=== PATIENT | male | born 1940 | race Caucasian/White ===

== ENCOUNTER 2017-04-12 16:57 | Inpatient (IN) | payer OTHER ==
[~2017-04-12] VITALS: Ht 182.9 cm; Wt 88.5 kg
[~2017-04-12 16:57] MED LIST: ATEN-60; BENA40TA7; DOXA1TAB42; FORMCAP; FUR40T PO; HYDR-3546 PO; IPRAAER5 IN; LOR05T PO; RANI-226; SIMV-13
[2017-04-12 17:23] LABS: CONDITION Y; Hematocrit 45.3 % (41.0-53.0); Hemoglobin 15.5 g/dL (13.5-17.5); Mean Corpuscular Hemoglobin 31.9 pg (28.0-32.0); Mean Corpuscular Hgb Conc. 34.3 g/dL (32.0-36.0); Mean Corpuscular Volume 93.1 fL (80.0-100.0); Mean Platelet Volume 8.4 fL (7.4-10.4); Platelet Count (auto) 258 10^3/uL (140-450); Red Cell Distribution Width 14.3 % (11.6-16.0); SUSPECT SEE PRINTOUT; White Blood Cell 27.4 10^3/uL (4.4-10.8)
[2017-04-12] MEDS ORDERED: SODIUM CHLORIDE 0.9% 1,000 ML IV ONE ×2 (17:27)
[2017-04-12 17:28] LABS: Metamyelocytes % 0; Myelocytes % 0; Promyelocytes % 0; Reactive Lymphocytes 0
[2017-04-12] MEDS ORDERED: IPRATROPIUM BROM 0.5 MG/2.5ML INH SOL NEB ONE (17:30)
[2017-04-12] MEDS ORDERED: cefTRIAXone 1GM/50ML D5W 50 ML IV ONE (17:30)
[2017-04-12] MEDS ORDERED: ALBUTEROL SULF 2.5 MG/0.5ML(0.5%) NEB SOLN NEB ONE (17:30)
[2017-04-12 17:43] LABS: INR 1.06 (0.9-1.15); Partial Thromboplastin Time 27.3 sec (22.64-33.71); Prothrombin Time 11.6 sec (9.37-12.3)
[2017-04-12] MEDS ORDERED: methylPREDNISolone SOD SUCC 125 MG/2 ML VL IV ONE (17:45)
[2017-04-12 17:46] LABS: Albumin 2.3 g/dL (3.4-5.0); BUN/Creatinine Ratio 18.2; Bilirubin, Total 1.2 mg/dL (0.2-1.0); Potassium 4.6 mmol/L (3.5-5.1); Total Protein 6.3 g/dL (6.4-8.2)
[2017-04-12 17:47] LABS: B-Type Natriuretic Peptide 99.83 pg/mL (0-100)
[2017-04-12 17:57] LABS: Platelet Estimate Adequate
[2017-04-12 18:00] LABS: Temperature: 22.7 C (20.0-25.0)
[2017-04-12] MEDS ORDERED: AZITHROMYCIN 500MG/D5W 250ML 250 ML IV ONE (18:15)
[2017-04-12] MEDS ORDERED: PIPERACILLIN-TAZOB 3.375GM 100 ML IV ONE ×2 (18:30→20:00)
[2017-04-12] MEDS ORDERED: VANCOMYCIN 1GM/250ML D5W 250 ML IV ONE (18:30)
[2017-04-12] MEDS ORDERED: TEMAZEPAM 15 MG CAP PO PRN (19:15)
[2017-04-12] MEDS ORDERED: MORPHINE SULF INJ 2 MG/ML SYRINGE 1ML IV PRN ×2 (19:15)
[2017-04-12] MEDS ORDERED: HYDROcodone-ACET 10/325MG TAB PO PRN (19:15)
[2017-04-12] MEDS ORDERED: NITROGLYCERIN 0.4 MG SL TAB SL PRN (19:15)
[2017-04-12] MEDS ORDERED: DOCUSATE SOD 100 MG CAP PO PRN (19:15)
[2017-04-12] MEDS ORDERED: ONDANSETRON HCL 4 MG/2 ML VIAL IV PRN (19:15)
[2017-04-12] MEDS ORDERED: ACETAMINOPHEN 325 MG TAB PO PRN (19:15)
[2017-04-12] MEDS ORDERED: VANCOMYCIN PER PHARMACY 0 MG IV SCH (19:15)
[2017-04-12] MEDS ORDERED: LORazepam 0.5 MG TAB PO PRN (19:15)
[2017-04-12] MEDS ORDERED: FUROSEMIDE 40 MG/4 ML VIAL IV ONE (19:30)
[2017-04-12] MEDS ORDERED: MULTIPLE VITAMIN TAB PO ONE (19:30)
[2017-04-12 21:33] VITALS: BP 97/59
[2017-04-12] MEDS: ATORVASTATIN 20 MG TAB PO SCH (22:04)
[2017-04-12] MEDS: FAMOTIDINE 20 MG TAB PO SCH (22:04)
[2017-04-12] MEDS: POTASSIUM CHL 20 Meq TABLET PO SCH (22:04)
[2017-04-12] MEDS: IPRATROPIUM BROM 0.5 MG/2.5ML INH SOL NEB SCH (22:28)
[2017-04-12] MEDS: BUDESONIDE (INHALATION) 0.5 MG/2 ML NEB NEB SCH (22:28)
[2017-04-12] MEDS: ALBUTEROL SULF 2.5 MG/0.5ML(0.5%) NEB SOLN NEB SCH (22:28)
[2017-04-12] MEDS: BOOST PLUS 8 ounce PO SCH (22:50)
[2017-04-12] MEDS: SODIUM CHLOR 0.9% PF (SALINE LOCK) 10ML VIAL IV SCH (23:45)
[2017-04-12 23:49] LABS: Urine Bilirubin Negative (Negative); Urine Blood Negative /uL (Negative); Urine Color Yellow (Yellow); Urine Glucose Normal (Normal); Urine Ketone Negative (Negative); Urine Nitrite Negative (Negative); Urine RBC <1 /hpf (0 - 3); Urine Urobilinogen Normal (Negative)
[2017-04-13] VITALS (7 sets, daily range): BP systolic 92–108; BP diastolic 57–70
[2017-04-13] MEDS: ALBUTEROL SULF 2.5 MG/0.5ML(0.5%) NEB SOLN NEB SCH ×5 (02:17→18:00)
[2017-04-13] MEDS: IPRATROPIUM BROM 0.5 MG/2.5ML INH SOL NEB SCH ×5 (02:17→18:00)
[2017-04-13] MEDS ORDERED: PRE5T PO (05:29)
[2017-04-13] MEDS ORDERED: IPRASOL39 NEB (05:29)
[2017-04-13] MEDS ORDERED: ALBU0.084 NEB (05:29)
[2017-04-13] MEDS ORDERED: FURO40TA4 PO (05:29)
[2017-04-13] MEDS ORDERED: ASPI-498 PO (05:29)
[2017-04-13] MEDS ORDERED: POTA1TAB4 PO (05:29)
[2017-04-13] MEDS ORDERED: HYDR-3546 PO (05:29)
[2017-04-13] MEDS: BOOST PLUS 8 ounce PO SCH ×4 (06:00→21:43)
[2017-04-13] MEDS: methylPREDNISolone SOD SUCC 40 MG/ML VL IV SCH ×3 (06:07→12:25)
[2017-04-13] MEDS: FUROSEMIDE 40 MG/4 ML VIAL IV SCH ×2 (06:08→17:42)
[2017-04-13] MEDS: SODIUM CHLOR 0.9% PF (SALINE LOCK) 10ML VIAL IV SCH ×3 (06:11→21:43)
[2017-04-13] MEDS: cefTRIAXone 1GM/50ML D5W 50 ML IV SCH (09:14)
[2017-04-13 09:28] LABS: CONDITION Y; Hematocrit 42.3 % (41.0-53.0); Hemoglobin 14.3 g/dL (13.5-17.5); Mean Corpuscular Hemoglobin 31.9 pg (28.0-32.0); Mean Corpuscular Hgb Conc. 33.9 g/dL (32.0-36.0); Mean Platelet Volume 8.6 fL (7.4-10.4); Platelet Count (auto) 205 10^3/uL (140-450); Red Cell Distribution Width 14.3 % (11.6-16.0); SUSPECT SEE PRINTOUT; White Blood Cell 21.4 10^3/uL (4.4-10.8)
[2017-04-13 09:41] LABS: Metamyelocytes % 0; Myelocytes % 0; Promyelocytes % 0; Reactive Lymphocytes 0
[2017-04-13] MEDS: POTASSIUM CHL 20 Meq TABLET PO SCH ×2 (09:44→21:43)
[2017-04-13] MEDS: ASPirin-EC 81 mg tab PO SCH (09:45)
[2017-04-13] MEDS: FAMOTIDINE 20 MG TAB PO SCH ×2 (09:45→21:43)
[2017-04-13] MEDS: MULTIPLE VITAMIN TAB PO SCH (09:45)
[2017-04-13 09:54] LABS: Albumin 2.1 g/dL (3.4-5.0); Calcium 8.4 mg/dL (8.5-10.1); Potassium 3.8 mmol/L (3.5-5.1)
[2017-04-13 09:57] LABS: BUN/Creatinine Ratio 22.2; Bilirubin, Total 0.7 mg/dL (0.2-1.0)
[2017-04-13] MEDS: BUDESONIDE (INHALATION) 0.5 MG/2 ML NEB NEB SCH (10:43)
[2017-04-13 11:26] LABS: Platelet Estimate Adequate
[2017-04-13 11:27] LABS: Burr Cells FEW; Ovalocytes FEW
[2017-04-13] MEDS: VANCOMYCIN 1,250 MG in D5W 5% 250 ML IV SCH (12:25)
[2017-04-13] MEDS ORDERED: TUBERCULIN PPD 5 UNIT/0.1 ML ID ONE (13:45)
[2017-04-13] MEDS ORDERED: MORPHINE SULFATE 4 MG/ML SYRG IV PRN ×2 (14:52→14:53)
[2017-04-13] MEDS: ATORVASTATIN 20 MG TAB PO SCH (21:43)
[2017-04-14 05:28] VITALS: BP 109/66
[2017-04-14] MEDS: SODIUM CHLOR 0.9% PF (SALINE LOCK) 10ML VIAL IV SCH ×3 (06:00→23:55)
[2017-04-14] MEDS: BOOST PLUS 8 ounce PO SCH ×4 (06:00→21:58)
[2017-04-14 06:26] LABS: CONDITION Y; Hematocrit 40.1 % (41.0-53.0); Hemoglobin 13.6 g/dL (13.5-17.5); Mean Corpuscular Volume 93.9 fL (80.0-100.0); Mean Platelet Volume 8.9 fL (7.4-10.4); Platelet Count (auto) 216 10^3/uL (140-450); Red Cell Distribution Width 13.8 % (11.6-16.0); SUSPECT SEE PRINTOUT; White Blood Cell 23.9 10^3/uL (4.4-10.8)
[2017-04-14] MEDS: VANCOMYCIN 1,250 MG in D5W 5% 250 ML IV SCH ×2 (06:36→23:55)
[2017-04-14] MEDS: FUROSEMIDE 40 MG/4 ML VIAL IV SCH ×2 (06:37→18:12)
[2017-04-14 06:45] LABS: Metamyelocytes % 0; Myelocytes % 0; Promyelocytes % 0; Reactive Lymphocytes 0
[2017-04-14 07:02] LABS: BUN/Creatinine Ratio 35.2; Calcium 8.8 mg/dL (8.5-10.1); Magnesium 2.4 mg/dL (1.6-2.6); Potassium 3.9 mmol/L (3.5-5.1)
[2017-04-14] MEDS: ALBUTEROL SULF 2.5 MG/0.5ML(0.5%) NEB SOLN NEB SCH ×5 (07:33→22:27)
[2017-04-14] MEDS: IPRATROPIUM BROM 0.5 MG/2.5ML INH SOL NEB SCH ×5 (07:33→22:27)
[2017-04-14] MEDS: BUDESONIDE (INHALATION) 0.5 MG/2 ML NEB NEB SCH ×2 (07:34→19:24)
[2017-04-14 08:38] LABS: Platelet Estimate Adequate
[2017-04-14 09:00] VITALS: BP 118/71
[2017-04-14] MEDS: FAMOTIDINE 20 MG TAB PO SCH ×2 (10:23→21:58)
[2017-04-14] MEDS: POTASSIUM CHL 20 Meq TABLET PO SCH ×2 (10:23→21:58)
[2017-04-14] MEDS: MULTIPLE VITAMIN TAB PO SCH (10:24)
[2017-04-14] MEDS: cefTRIAXone 1GM/50ML D5W 50 ML IV SCH (10:24)
[2017-04-14] MEDS: ASPirin-EC 81 mg tab PO SCH (10:24)
[2017-04-14 12:57] VITALS: BP 116/77
[2017-04-14 17:09] VITALS: BP 118/64
[2017-04-14 20:00] VITALS: BP 113/74
[2017-04-14] MEDS: ATORVASTATIN 20 MG TAB PO SCH (21:58)
[2017-04-14 22:00] VITALS: BP 113/74
[2017-04-15] VITALS (7 sets, daily range): BP systolic 99–110; BP diastolic 59–71
[2017-04-15] MEDS: ALBUTEROL SULF 2.5 MG/0.5ML(0.5%) NEB SOLN NEB SCH ×6 (02:29→22:18)
[2017-04-15] MEDS: IPRATROPIUM BROM 0.5 MG/2.5ML INH SOL NEB SCH ×6 (02:29→22:18)
[2017-04-15] MEDS: FUROSEMIDE 40 MG/4 ML VIAL IV SCH ×2 (05:38→18:00)
[2017-04-15] MEDS: SODIUM CHLOR 0.9% PF (SALINE LOCK) 10ML VIAL IV SCH ×3 (05:39→21:50)
[2017-04-15] MEDS: BOOST PLUS 8 ounce PO SCH ×4 (06:00→21:50)
[2017-04-15 07:20] LABS: Basophils # (auto) 0 uL; Basophils % (auto) 0.1 % (0.0-2.0); CONDITION Y; Eosinophils # (auto) 0 uL; Eosinophils % (auto) 0.1 % (0.0-7.0); Hematocrit 43.2 % (41.0-53.0); Hemoglobin 15.2 g/dL (13.5-17.5); Lymphocytes # (auto) 0.8 uL; Lymphocytes % (auto) 4.6 % (10.0-50.0); Mean Corpuscular Hemoglobin 32.7 pg (28.0-32.0); Mean Corpuscular Hgb Conc. 35.1 g/dL (32.0-36.0); Mean Corpuscular Volume 93.3 fL (80.0-100.0); Mean Platelet Volume 8.4 fL (7.4-10.4); Monocytes # (auto) 0.7 uL; Neutrophils # (auto) 15.1 uL; Neutrophils % (auto) 91.2 % (37.0-80.0); Platelet Count (auto) 200 10^3/uL (140-450); White Blood Cell 16.6 10^3/uL (4.4-10.8)
[2017-04-15] MEDS: BUDESONIDE (INHALATION) 0.5 MG/2 ML NEB NEB SCH ×2 (07:34→19:04)
[2017-04-15 07:40] LABS: Calcium 8.7 mg/dL (8.5-10.1); Magnesium 2.3 mg/dL (1.6-2.6); Potassium 3.8 mmol/L (3.5-5.1)
[2017-04-15] MEDS: PIPERACILLIN-TAZO 4.5GM 100 ML IV SCH ×3 (08:25→23:41)
[2017-04-15] MEDS: FAMOTIDINE 20 MG TAB PO SCH ×2 (09:54→21:51)
[2017-04-15] MEDS: POTASSIUM CHL 20 Meq TABLET PO SCH ×2 (09:54→21:50)
[2017-04-15] MEDS: ASPirin-EC 81 mg tab PO SCH (09:54)
[2017-04-15] MEDS: MULTIPLE VITAMIN TAB PO SCH (09:54)
[2017-04-15] MEDS: VANCOMYCIN 1,250 MG in D5W 5% 250 ML IV SCH (18:14)
[2017-04-15] MEDS: ATORVASTATIN 20 MG TAB PO SCH (21:50)
[2017-04-16 05:00] VITALS: BP 114/76
[2017-04-16 05:45] LABS: Basophils # (auto) 0 uL; Basophils % (auto) 0.2 % (0.0-2.0); CONDITION Y; Eosinophils # (auto) 0.1 uL; Eosinophils % (auto) 0.3 % (0.0-7.0); Hematocrit 42.2 % (41.0-53.0); Hemoglobin 14.5 g/dL (13.5-17.5); Lymphocytes # (auto) 0.6 uL; Lymphocytes % (auto) 3.8 % (10.0-50.0); Mean Corpuscular Hemoglobin 31.9 pg (28.0-32.0); Mean Corpuscular Hgb Conc. 34.3 g/dL (32.0-36.0); Mean Corpuscular Volume 92.9 fL (80.0-100.0); Mean Platelet Volume 8.2 fL (7.4-10.4); Monocytes # (auto) 0.6 uL; Monocytes % (auto) 3.8 % (0.0-12.0); Neutrophils # (auto) 14.7 uL; Neutrophils % (auto) 91.9 % (37.0-80.0); Platelet Count (auto) 254 10^3/uL (140-450); Red Cell Distribution Width 14.3 % (11.6-16.0); SUSPECT SEE PRINTOUT; White Blood Cell 15.9 10^3/uL (4.4-10.8)
[2017-04-16] MEDS: BOOST PLUS 8 ounce PO SCH ×2 (06:00→12:14)
[2017-04-16] MEDS: SODIUM CHLOR 0.9% PF (SALINE LOCK) 10ML VIAL IV SCH ×2 (06:01→16:12)
[2017-04-16 06:11] LABS: BUN/Creatinine Ratio 20.6; Calcium 8.7 mg/dL (8.5-10.1); Magnesium 2.5 mg/dL (1.6-2.6); Potassium 3.9 mmol/L (3.5-5.1)
[2017-04-16] MEDS: IPRATROPIUM BROM 0.5 MG/2.5ML INH SOL NEB SCH ×3 (06:30→14:37)
[2017-04-16] MEDS: BUDESONIDE (INHALATION) 0.5 MG/2 ML NEB NEB SCH (06:30)
[2017-04-16] MEDS: ALBUTEROL SULF 2.5 MG/0.5ML(0.5%) NEB SOLN NEB SCH ×3 (06:30→14:00)
[2017-04-16] MEDS: FUROSEMIDE 40 MG/4 ML VIAL IV SCH (06:30)
[2017-04-16] MEDS: FAMOTIDINE 20 MG TAB PO SCH (08:48)
[2017-04-16] MEDS: POTASSIUM CHL 20 Meq TABLET PO SCH (08:48)
[2017-04-16] MEDS: PIPERACILLIN-TAZO 4.5GM 100 ML IV SCH ×2 (08:48→16:00)
[2017-04-16] MEDS: ASPirin-EC 81 mg tab PO SCH (08:48)
[2017-04-16] MEDS: MULTIPLE VITAMIN TAB PO SCH (08:48)
[2017-04-16 09:00] VITALS: BP 99/64
[2017-04-16] MEDS: VANCOMYCIN 1,250 MG in D5W 5% 250 ML IV SCH (12:14)
[2017-04-16 13:00] VITALS: BP_SYST 106; BP_SYST 107; BP_DIAS 68; BP_DIAS 69
[2017-04-16] MEDS ORDERED: LIDOCAINE 1% HCL (LOCAL ANESTH.) INJ 20ML MDV ID ONE (13:30)
[2017-04-16] MEDS ORDERED: SODIUM CHLOR 0.9% PF (SALINE LOCK) 10ML VIAL IV SCH (22:00)
== END 2017-04-16 16:00 | disposition home health service (06) | DRG 871 ==
LOC: ER 16:59 → TELE 17:00 → TELE-CENTR 04-13 04:10 → TELE-WESTW 04-13 13:42
PROVIDERS: ADMIT Internal Medicine; ATTEND Family Medicine
PROC: 02HV33Z Insertion of Infusion Device into Superior Vena Cava, Percutaneous Approach (ICD-10-PCS; principal; 2017-04-16)
DX: A41.9 Sepsis, unspecified organism (principal); I50.43 Acute on chronic combined systolic (congestive) and diastolic (congestive) heart failure; J96.00 Acute respiratory failure, unspecified whether with hypoxia or hypercapnia; J15.0 Pneumonia due to Klebsiella pneumoniae; J44.0 Chronic obstructive pulmonary disease with (acute) lower respiratory infection; I13.0 Hypertensive heart and chronic kidney disease with heart failure and stage 1 through stage 4 chronic kidney disease, or unspecified chronic kidney disease; N17.9 Acute kidney failure, unspecified; J44.1 Chronic obstructive pulmonary disease with (acute) exacerbation; F17.210 Nicotine dependence, cigarettes, uncomplicated; N18.9 Chronic kidney disease, unspecified; E78.5 Hyperlipidemia, unspecified; R63.0 Anorexia; I25.10 Atherosclerotic heart disease of native coronary artery without angina pectoris; I25.2 Old myocardial infarction; Z83.3 Family history of diabetes mellitus; Z95.5 Presence of coronary angioplasty implant and graft; Z79.899 Other long term (current) drug therapy; Z82.49 Family history of ischemic heart disease and other diseases of the circulatory system; Z23 Encounter for immunization; Z88.2 Allergy status to sulfonamides; Z88.1 Allergy status to other antibiotic agents; Z88.8 Allergy status to other drugs, medicaments and biological substances; Z68.26 Body mass index [BMI] 26.0-26.9, adult
CPT/HCPCS: 36415; 36569; 71010; 71250; 80048; 80053; 80202; 81001; 83605; 83735; 83880; 84484; 85007; 85025; 85027; 85610; 85730; 87040; 87070; 87077; 87186; 87205; 93005; 93306; 93971; 94640; 96365; 96368; 96375; J0696; J2543; J7060